=== PATIENT | male | born 1955 | race Caucasian/White ===

== ENCOUNTER → 2016-11-15 | Outpatient (CLI) | payer MEDICARE | LOC: RAD 16:07 | PROVIDERS: ATTEND Family Medicine | DX: Z53.8 Procedure and treatment not carried out for other reasons (principal) ==

== ENCOUNTER → 2016-11-15 | Outpatient (REF) | payer MEDICARE ==
[2016-11-15 17:12] LABS: ANION GAP 19.3 MEQ/L (3-15)
== END ==
LOC: LAB 16:11
PROVIDERS: ATTEND Family Medicine
DX: R60.9 Edema, unspecified (principal); I87.311 Chronic venous hypertension (idiopathic) with ulcer of right lower extremity; M25.561 Pain in right knee
CPT/HCPCS: 73560; 80048

== ENCOUNTER → 2016-11-22 | Outpatient (REF) | payer MEDICARE ==
[2016-11-22 17:11] LABS: ANION GAP 16.2 MEQ/L (3-15)
== END ==
LOC: LAB 16:33
PROVIDERS: ATTEND Family Medicine
DX: R60.0 Localized edema (principal)
CPT/HCPCS: 80048

== ENCOUNTER → 2016-12-27 | Outpatient (REF) | payer MEDICARE ==
[2016-12-27 15:43] LABS: ANION GAP 14.7 MEQ/L (3-15)
== END ==
LOC: LAB 15:00
PROVIDERS: ATTEND Family Medicine
DX: I10 Essential (primary) hypertension (principal); E11.9 Type 2 diabetes mellitus without complications
CPT/HCPCS: 80048; 83036